=== PATIENT | female | born 1965 | race Caucasian/White ===

== ENCOUNTER 2018-10-29 09:25 | Emergency (ER) | payer OTHER ==
[2018-10-29] MEDS ORDERED: NS 1,000 ML IV ONE (10:04)
--- NOTE | 2018-10-29 11:14 | EDPHY ---
H & P Stated Complaint: Pt. disabled, WC bound, not transferring nml,fell sat &thurs, lle swelling Time Seen by Provider: 10/29/18 09:46 HPI/ROS: This patient is brought in by her parents with a history of 3 falls over the past 6 days. The 1st was witnessed by her mother-describes the patient falling backward during a transfer. Mother has the impression that the patient is more weak in the lower extremities than usual. Typically she can transfer with minimal assist but has required maximal assist over the past few days. She had 2 other minor falls as well. After the 1st fall patient's mother noted swelling the lower left extremity is worried that the patient may have a venous thrombosis, fracture or other injury. She reveals the patient is quite stoic and rarely complains of any pain. Parents brought her in by private vehicle. She normally ambulates in a wheelchair. Her recent history is notable for a UTI diagnosed on October 27 started on Keflex with pansensitive E coli growing out on the culture. She is currently taking Keflex 500 mg q.12 hours ROS: Constitutional: Low-grade fevers have resolved on Keflex HEENT: She denies any cold symptoms or other complaints Neuro: No headache. No change in the patient's baseline mental status per parents Musculoskeletal: No midline neck or back pain. Other than left lower extremity no extremity injuries. Patient is unable to specify if she has ankle foot or leg pain. Father does note the patient has a abrasion the dorsum of her left 2nd toe but the patient denies any pain to this area. Pulmonary: No shortness of breath. No coughing Cardiovascular: No chest pain or lightheadedness GI: No nausea vomiting. No belly pain. Normal bowel movements. : No dysuria. No hematuria. 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 However her mother and father provide good history.) - Personal History LMP (Females 10-55): Now - Medical/Surgical History Hx Asthma: No Hx Chronic Respiratory Disease: No Hx Diabetes: No Hx Cardiac Disease: No Hx Renal Disease: No Hx Cirrhosis: No Hx Alcoholism: No Hx HIV/AIDS: No Hx Splenectomy or Spleen Trauma: No Other PMH: Brain injury. Surg-none - Social History Smoking Status: Never smoked Alcohol Use: None Drug Use: None - Physical Exam Exam: General Appearance: Pleasant 53-year-old female Alert, no distress. Eyes: Pupils equal and round no pallor or injection. ENT, Mouth: Mucous membranes dry. Respiratory: There are no retractions, lungs are clear to auscultation. Cardiovascular: Regular rate and rhythm. No murmur gallop or rub Gastrointestinal: Abdomen is soft and nontender, no masses, bowel sounds normal. Back: No CVA tenderness Neurological: GCS 15 Skin: Warm and dry, no rashes. Patient has abrasion to the dorsum of her left 2nd toe-localized erythema is present Musculoskeletal: Neck is supple nontender. Extremities are symmetrical, full range of motion. Extremities atraumatic except for left lower extremity Left lower extremity: Patient has generalized edema to the foot ankle and leg with a negative Homans, no apparent focal foot or ankle tenderness. No calf tenderness is appreciated. Knee exam is normal. The patient has a superficial abrasion dorsum of the left 2nd toe with surrounding erythema warmth to touch consistent with localized cellulitis. No bony tenderness. Psychiatric: Mood and affect are normal DIFFERENTIAL DIAGNOSIS: After history and physical exam differential diagnosis was considered for ongoing UTI, contusion to the lower extremity, fibular fracture, ankle fracture, foot fracture, toe abrasion, toe cellulitis Constitutional: Initial Vital Signs Temperature (C) 37.0 C 10/29/18 09:37 Heart Rate 76 10/29/18 09:37 Respiratory Rate 16 10/29/18 09:37 Blood Pressure 144/92 H 10/29/18 09:37 O2 Sat (%) 93 10/29/18 09:37 O2 Delivery Mode Room Air Allergies/Adverse Reactions: adhesive Allergy (Verified 10/29/18 09:32) iodine [Iodine] Allergy (Verified 10/29/18 09:32) CONTRAST DYE Allergy (Uncoded 10/29/18 09:32) Home Medications: Medication Instructions Recorded Acetaminophen 10/29/18 Caltrate 600-D3-Min Chew Tab 10/29/18 Cephalexin 10/29/18 Cephalexin [Keflex Oral Liquid] 500 mg PO TID #150 ml 10/29/18 Colace 10/29/18 Ondansetron Odt [Zofran Odt] 4 - 8 mg PO Q4PRN PRN #4 tab 10/29/18 Medical Decision Making - Diagnostics Imaging Results: Imaging Impressions Extremity Venous Study 10/29/18 10:05 Impression: No deep venous thrombosis in the left lower extremity. Findings discussed with Eb Guevara M.D. at 10:53 hour, 10/29/2018. Tibia/Fibula X-Ray 10/29/18 10:06 Impression: 1. No acute osseous abnormality seen left tibia and fibula. 2. No acute osseous abnormality seen left foot. 3. Remodeling related to remote fractures of the left first toe proximal phalanx and fifth metatarsal. Findings discussed with Eb Guevara M.D. at 10:56 hour, 10/29/2018. Foot X-Ray 10/29/18 10:07 Impression: 1. No acute osseous abnormality seen left tibia and fibula. 2. No acute osseous abnormality seen left foot. 3. Remodeling related to remote fractures of the left first toe proximal phalanx and fifth metatarsal. Findings discussed with Eb Guevara M.D. at 10:56 hour, 10/29/2018. Tib-fib x-rays fracture by my interpretation Foot x-rays: No acute fracture by my interpretation Imaging: Discussed imaging studies w/ [employer] art teacher Radiologist (The Doppler ultrasound), I viewed and interpreted images myself (The plain x-rays) ED Course/Re-evaluation: Cleaned the patient's toe wound, applied bacitracin and bandage. We elevated her edematous leg. Patient is treated with Zofran for presumed nausea given diminished appetite. Discussion: Patient with ongoing leukocytosis but apparent clearance of UTI based on current UA. She has no fever. She does have findings on her toe exam consistent with a mild wound infection/localized cellulitis to the toe but no other infectious sources noted. She has no focal neuro deficits appreciated on exam. No other red flag findings. We ruled out DVT in fracture lower extremity. I counseled patient and parents regarding this. Plan to send her out on an additional 5 days of Keflex to cover toe cellulitis and Zofran for nausea that may be diminishing her appetite. - Data Points Laboratory Results: 10/29/18 11:06 POC Sodium 147 mEq/L H mEq/L (135-145) POC Potassium 3.3 mEq/L mEq/L (3.3-5.0) POC Chloride 100.0 mEq/L mEq/L (97-110) POC Total CO2 29 mEq/L mEq/L (22-31) POC BUN 14 mg/dL mg/dL (7-23) POC Creatinine 0.9 mg/dL mg/dL (0.6-1.0) POC Glucose 102 mg/dL H mg/dL (70-100) POC Calcium 9.8 mg/dL mg/dL (8.5-10.4) Patient[place] [id number] POC urine dip is normal Medications Given: Discontinued Medications Sodium Chloride (Ns) 1,000 mls @ 0 mls/hr IV EDNOW ONE; Wide Open PRN Reason: Protocol Stop: 10/29/18 10:05 Last Admin: 10/29/18 10:45 Dose: 1,000 mls Ceftriaxone Sodium/Dextrose (Rocephin 1 Gm (Premix)) 50 mls @ 100 mls/hr IV EDNOW ONE PRN Reason: Protocol Stop: 10/29/18 12:18 Last Admin: 10/29/18 12:01 Dose: Not Given Ondansetron HCl (Zofran Odt) 4 mg PO EDNOW ONE Stop: 10/29/18 12:07 Last Admin: 10/29/18 12:44 Dose: 4 mg Point of Care Test Results: CBC CBC Collection Date 10/29/18 CBC Collection Time 11:00 WBC 14.7 RBC 4.75 HGB 14.3 HCT 43.0 PLT 328 Neut # 12.9 Neut 88.0 LYMPH # 1.0 LYMPH 6.5 Other WBC # 0.8 Other WBC 5.5 MCV 90.5 Chemistry 10/29/18 11:06 POC Sodium 147 mEq/L H mEq/L (135-145) POC Potassium 3.3 mEq/L mEq/L (3.3-5.0) POC Chloride 100.0 mEq/L mEq/L (97-110) POC Total CO2 29 mEq/L mEq/L (22-31) POC BUN 14 mg/dL mg/dL (7-23) POC Creatinine 0.9 mg/dL mg/dL (0.6-1.0) POC Glucose 102 mg/dL H mg/dL (70-100) POC Calcium 9.8 mg/dL mg/dL (8.5-10.4) Urine Dip Collection Date 10/29/18 Collection Time 11:45 Specific [place] (1.002-1.030) 1.025 PH (5.0-7.5) 5.5 Leukocytes (Negative) Negative Nitrites (Negative) Negative Protein (Negative) 1+ Glucose (Negative) Negative Ketones (Negative) 1+ Urobilnogen (0.2-1.0 EU) 1.0 Bilirubin (Negative) Test Not Performed Blood (Negative) Trace Departure - Departure Disposition: Home, Routine, Self-Care Clinical Impression: Leg edema, left, Generalized weakness, Nausea Toe abrasion, infected Qualifiers: Encounter type: initial encounter Laterality: left Qualified Code(s): S90.415A - Abrasion, left lesser toe(s), initial encounter Condition: Good Instructions: Cephalexin (By mouth), Ondansetron (By mouth), Cellulitis (ED) Additional Instructions: Diagnoses: Generalized weakness 2. Nausea 3. Toe cellulitis/toe wound infection 4. Leg edema Plan: Clean the toe wound daily with warm soapy water,apply bacitracin and bandaid. Leave bandaid off 3-4hours a day. Elevate the leg past level of the heart whenever possible during the day while she is at rest Zofran for nausea as needed. Use the Zofran if she has no appetite as well Keflex antibiotic-take an additional 5 days worth 500 mg 3 times a day to cover the toe infection. Follow up primary care physician for any ongoing symptoms despite treatment plan Return for any significant worsening despite treatment plan Referrals: Shelby Argueta MD [Primary Care Provider] - As per Instructions Prescriptions: Cephalexin [Keflex Oral Liquid] 500 mg PO TID #150 ml Ondansetron Odt [Zofran Odt] 4 - 8 mg PO Q4PRN PRN #4 tab PRN Reason: Vomiting
[2018-10-29] MEDS ORDERED: ONDANSETRON DISINTEGRATING 4 MG TAB PO ONE (12:06)
[2018-10-29 12:44] VITALS: BP 126/76
== END 2018-10-29 12:42 | disposition home or self-care (01) ==
LOC: CED 09:25
DX: S90.415A Abrasion, left lesser toe(s), initial encounter (principal); R60.0 Localized edema; R53.1 Weakness; R11.0 Nausea; W19.XXXA Unspecified fall, initial encounter; Y92.9 Unspecified place or not applicable; Y93.9 Activity, unspecified; Y99.9 Unspecified external cause status
CPT/HCPCS: 73590-PO; 73630-PO; 80048-PO; 93971-PO

== ENCOUNTER → 2018-11-03 | Outpatient (CLI) | payer OTHER | LOC: CIMAGING 16:42 | PROVIDERS: ATTEND Family Medicine | DX: M24.852 Other specific joint derangements of left hip, not elsewhere classified (principal); M85.88 Other specified disorders of bone density and structure, other site | CPT/HCPCS: 73521-PO ==

== ENCOUNTER 2018-11-12 14:26 | Inpatient (IN) | payer OTHER ==
--- NOTE | 2018-11-12 16:03 | EDPHY ---
H & P Time Seen by Provider: 11/12/18 15:47 HPI/ROS: CHIEF COMPLAINT: Weakness, cellulitis HISTORY OF PRESENT ILLNESS: Patient is a 53-year-old female with a history of traumatic brain injury when she was 18 years old. She has been living in assisted living at [place] [facility]. The patient had a fall while getting out of the car few weeks ago. Since that time she has had increased gait issues. She seems unable to use her lower extremities. She normally could transfer herself using a walker and wheelchair. Now she is unable to use her lower extremities. She has also had leg swelling for the past 2 weeks. She has worked up as an outpatient by her primary care physician Dr. Davis. She had a negative ultrasound and x-ray. X-ray included her left lower extremity and hip. The patient was treated with Keflex for urinary tract infection and subsequently seen at an urgent care for left lower extremity redness. She was started on clindamycin in addition to the Keflex. The patient saw her primary care physician today, Dr. Davis. He noted that she had increased cellulitis. He was also concerned about head injury resulting from her fall. He noticed that her alk-phos was significantly elevated and was concerned about gallbladder disease. REVIEW OF SYSTEMS: 10 systems were reveiwed and are negative with the exception of the elements mentioned in the history of present illness. Past Medical/Surgical History: Includes traumatic brain injury, cellulitis Past surgical history: Negative Social history: Patient lives in assisted living Smoking Status: Never smoked Physical Exam: 36.7, 154/89, 110, 24, 97% on room air GENERAL: Well-appearing, in no acute distress, alert. HEENT: Eyes normal to inspection, normal pharynx, no signs of dehydration. No signs of head trauma. NECK: Normal, supple. RESPIRATORY: Clear to auscultation bilaterally, no rales, rhonchi or wheezing. CVS: Regular rate and rhythm, no rubs, murmurs, or gallops. ABDOMEN: Soft, nontender, nondistended, no organomegaly. BACK: Normal to inspection, no CVA tenderness. No spinal tenderness. SKIN: Normal color, no rash, warm, dry. No pallor. See lower extremity exam EXTREMITIES: Patient has swelling of her left lower extremity. There is erythema. The erythema extends beyond the demarcation. Mild bilateral pedal edema. Left slightly worse than the right. NEURO/PSYCH: Alert and oriented, baseline mood and affect, the patient has weakness in her bilateral lower extremities. Constitutional: Initial Vital Signs Temperature (C) 36.7 C 11/12/18 14:33 Heart Rate 110 H 11/12/18 14:33 Respiratory Rate 24 H 11/12/18 14:33 Blood Pressure 154/89 H 11/12/18 14:33 O2 Sat (%) 97 11/12/18 14:33 O2 Delivery Mode Room Air Allergies/Adverse Reactions: adhesive Allergy (Verified 11/12/18 14:32) iodine [Iodine] Allergy (Verified 11/12/18 14:32) Sulfa (Sulfonamide Antibiotics) Allergy (Verified 11/12/18 14:32) CONTRAST DYE Allergy (Uncoded 11/12/18 14:32) Home Medications: Medication Instructions Recorded Caltrate 600-D3-Min Chew Tab 10/29/18 Clindamycin 11/12/18 Medical Decision Making - Diagnostics Imaging Results: Imaging Impressions Head CT 11/12/18 15:59 Impression: Stable noncontrast CT of the brain. Marked enlargement of the ventricular system with underlying atrophy and encephalomalacia of the right frontal lobe. Results called to Dr. Nenita Fernandes at 4:45 PM at the time of the interpretation. ED Course/Re-evaluation: The in the emergency department I discussed possible etiologies with the patient and family. I answered all her questions. IV was placed. Laboratory studies were obtained. Patient was given normal saline 500 mL IV for hydration. Head CT: Patient has no acute disease noted. Please refer the dictated report by Dr. Robertson. The patient white count is mildly elevated at 10. Chemistry panel is unremarkable. Lactate acid is 1.1. Coags are normal. While in the emergency department she was noted to have a decubitus ulcer. This was cleaned and dressed. I discussed the results with the family. I answered all her questions. I also discussed case with Dr. Holly Barnett from the hospitalist service. I discussed the further workup which may be needed including ultrasound of the gallbladder as well as imaging of the spine for her new onset weakness. Differential Diagnosis: My differential includes but is not limited to cellulitis, bacteremia, sepsis, spinal cord injury, closed-head injury, subarachnoid hemorrhage, subdural hematoma epidural hematoma, hepatitis, cholecystitis, cholangitis - Data Points Laboratory Results: Laboratory Results 11/12/18 16:10 11/12/18 16:10 11/12/18 11/12/18 11/12/18 16:10 16:10 16:10 WBC RBC Hgb Hct MCV MCH MCHC RDW Plt Count MPV Neut % (Auto) Lymph % (Auto) [place] % (Auto) Eos % (Auto) Baso % (Auto) Nucleat RBC Rel Count Absolute Neuts (auto) Absolute Lymphs (auto) Absolute Monos (auto) Absolute Eos (auto) Absolute Basos (auto) Absolute Nucleated RBC Immature Gran % Immature Gran # PT 13.6 SEC SEC (12.0-15.0) INR 1.02 (0.83-1.16) APTT 27.5 SEC SEC (23.0-38.0) VBG Lactic Acid 1.1 mmol/L mmol/L (0.7-2.1) Sodium 138 mEq/L mEq/L (135-145) Potassium 4.5 mEq/L mEq/L (3.5-5.2) Chloride 105 mEq/L mEq/L (97-110) Carbon Dioxide 25 mEq/l mEq/l (22-31) Anion Gap 8 mEq/L mEq/L (6-14) BUN 9 mg/dL mg/dL (7-23) Creatinine 0.7 mg/dL mg/dL (0.6-1.0) Estimated GFR > 60 Glucose 96 mg/dL mg/dL (70-100) Calcium 9.5 mg/dL mg/dL (8.5-10.4) 11/12/18 16:10 WBC 10.31 10^3/uL H 10^3/uL (3.80-9.50) RBC 4.82 10^6/uL 10^6/uL (4.18-5.33) Hgb 14.0 g/dL g/dL (12.6-16.3) Hct 44.3 % % (38.0-47.0) MCV 91.9 fL fL (81.5-99.8) MCH 29.0 pg pg (27.9-34.1) MCHC 31.6 g/dL L g/dL (32.4-36.7) RDW 13.2 % % (11.5-15.2) Plt Count 592 10^3/uL H 10^3/uL (150-400) MPV 10.3 fL fL (8.7-11.7) Neut % (Auto) 74.8 % H % (39.3-74.2) Lymph % (Auto) 14.4 % L % (15.0-45.0) [place] % (Auto) 8.1 % % (4.5-13.0) Eos % (Auto) 1.7 % % (0.6-7.6) Baso % (Auto) 0.4 % % (0.3-1.7) Nucleat RBC Rel Count 0.0 % % (0.0-0.2) Absolute Neuts (auto) 7.72 10^3/uL H 10^3/uL (1.70-6.50) Absolute Lymphs (auto) 1.48 10^3/uL 10^3/uL (1.00-3.00) Absolute Monos (auto) 0.83 10^3/uL H 10^3/uL (0.30-0.80) Absolute Eos (auto) 0.18 10^3/uL 10^3/uL (0.03-0.40) Absolute Basos (auto) 0.04 10^3/uL 10^3/uL (0.02-0.10) Absolute Nucleated RBC 0.00 10^3/uL 10^3/uL (0-0.01) Immature Gran % 0.6 % % (0.0-1.1) Immature Gran # 0.06 10^3/uL 10^3/uL (0.00-0.10) PT INR APTT VBG Lactic Acid Sodium Potassium Chloride Carbon Dioxide Anion Gap BUN Creatinine Estimated GFR Glucose Calcium Departure - Departure Disposition: [facility] Inpatient Acute Clinical Impression: Weakness Lower extremity weakness Qualifiers: Laterality: bilateral Qualified Code(s): R29.898 - Other symptoms and signs involving the musculoskeletal system Cellulitis Qualifiers: Site of cellulitis: extremity Site of cellulitis of extremity: lower extremity Laterality: left Qualified Code(s): L03.116 - Cellulitis of left lower limb Decubitus ulcer Qualifiers: Pressure injury location: buttock Pressure injury stage: stage 2 Laterality: unspecified laterality Qualified Code(s): L89.302 - Pressure ulcer of unspecified buttock, stage 2 Condition: Good Referrals: Tree Davis, [Primary Care Provider] - As per Instructions
[2018-11-12 16:27] LABS: PLATELET COUNT 592 10^3/uL (150-400)
[2018-11-12 16:34] LABS: INR 1.02 (0.83-1.16); PROTIME(PATIENT) 13.6 SEC (12.0-15.0)
[2018-11-12] MEDS ORDERED: VANCOMYCIN HCL/NORMAL SALINE 250 ML IV ONE (16:56)
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
--- NOTE | 2018-11-12 19:37 | WOCRNPDOC ---
[facility] Advanced Assessment Note - Skin Integrity Problem, Advanced Assess Sacrum Pressure Injury Dressing Type: Allevyn Life Dressing Description: Clean/Dry, Intact Exudate Amount: Scant Exudate Characteristic(s): Serosanguinous Integumentary Issue Intervention: Dressing Changed, Dressing Initialed & Dated Bren Wound Tissue: Erythema, Non-blanching Wound Bed Color: Red, Yellow Wound Bed Constitution: Red/Manley - Non Granular Tissue (30%), Adhered Slough (70 %) Site Measurement - Head-to-Toe Length X Width X Depth (cm): 5.4x7.6x0.2 Pressure Injury Stage: Unstageable (main body of pressure injury), Deep Tissue Injury (DTI) (edges and proximal wound bed within and seperated by less than 0.5 cm from larger wound that is measured above) Pressure Injury Present on Admit: Yes Skin Integrity Problem Comment: Large pressure injury involving sacrum and coccyx that is of varying depths. This wound is surrounded by scar tissue from previous pressure injuries. The wound is very concerning and aggressive offloading is warrented to stop this wound from progressing. Without aggressive intervention the wound can quickly devolve into a stage 4 pressure injury that will be difficult to heal. The middle and left portions of the wound are covered by slough. There is a shallower area on the right that is pink/red non granular. However there are several areas of deep tissue injury on the periphery and on the proximal sacrum. The wound will enlarge as those areas open /evolve. Aggressive turning with no positioning on her back is indicated. Will trial an Envella mattress for this patient. If the Envella is not tolerable will revert to a P500, but an air fluidized surface would be best. Jeannine SUTTON in room for assessment. New mepilex border applied after cleaning and applying hydrogel to wound bed. Wound care will follow. Proximal Sacrum Pressure Injury Dressing Type: Open to Air Wound Bed Constitution: Red/Manley - Non Granular Tissue Site Measurement - Head-to-Toe Length X Width X Depth (cm): Inverted V shape total measurement of the is: 1.8x14.6x0.1. There are several areas open within the total measurement the largest area is on the right measuring 4x1.8x0.1 Pressure Injury Stage: Stage 2, Clinical Support Manager Related Pressure Injury Pressure Injury Present on Admit: Yes Skin Integrity Problem Comment: Suspected pressure injury from a bedpan. There are open and small scabbed areas throughout the inverted V shaped wound. The wound (tip of the V) originates around L1/L2 and extends distally onto each buttock.
--- NOTE | 2018-11-12 21:43 | HOSPPROG ---
Hospitalist Progress Note Assessment/Plan: 53 yo F with hx of TBI since age 18 residing in assisted living presenting with progressive weakness of her lower extremities to where she is no longer able to ambulate as well as decubitus ulcer present on arrival and LLE cellulitis # lower extremity weakness: hx is a bit confusing and has been obtained from patients family and patients PCP who wanted her worked up for this further-- sounds as if she was able to walk/transfer independently for short distances 2- 3 weeks ago but now is no longer ambulatory and seems to have right greater than left sided weakness with increased tone and no c/o pain. Exam difficult due to patients cognitive dysfunction and difficulty following commands. Will get MRI T/L spine if patient able to cooperate. Will ask for pt/ot to eval. Head CT without acute findings, consider brain MRI if w/u otherwise negative. # LLE cellulitis: relatively mild and without associated sepsis, was on clindamycin as an OP, given vanco x 1 in ER and will transition to ancef and monitor # cognitive decline: per patients pcp she has had a more progressive decline over the last several years in the setting of prior TBI, sounds as though she is at her more recent baseline currently # decubitus ulcer: present on arrival--please see wound care note for further details--two wounds, one unstageable the other stage 2, in the setting of new onset weakness as above, wound care to follow # elevated alk phos: noted by pcp, has been fractionated and noted to be both of bone and liver origin, other liver function tests are within normal limits. Not clear that this is a primary liver issue given elevated bone fraction as well. TSH wnl, calcium wnl. Consider referral to endocrinology if persists, could refractionate but overall seems to be trending down # dnr # IP status, will require > 48 hours stay for eval/mgmt of above Patient new to my care. Old records reviewed and summarized as above. Care plan reviewed with ER doctor and RAUL Loyd, please see her separate h&P for further details. Objective: Vital Signs Temp Pulse Resp BP Pulse Ox 36.9 C 98 16 128/94 H 98 11/12/18 18:20 11/12/18 18:20 11/12/18 18:20 11/12/18 18:20 11/12/18 18:20 11/11/18 11/12/18 11/13/18 05:59 05:59 05:59 Intake Total 400 Output Total 300 Balance 100 PT 13.6 SEC (12.0-15.0) 11/12/18 16:10 INR 1.02 (0.83-1.16) 11/12/18 16:10 ICD10 Worksheet Patient Problems: Problems Problem Status Onset Cellulitis Acute Decubitus ulcer Acute Lower extremity weakness Acute Weakness Acute
--- NOTE | 2018-11-13 09:35 | HOSPPROG ---
Hospitalist Progress Note Assessment/Plan: 53 yo F with hx of TBI since age 18 residing in assisted living presenting with progressive weakness of her lower extremities to where she is no longer able to ambulate as well as decubitus ulcer present on arrival and LLE cellulitis. First encounter, chart reviewed. # lower extremity weakness -was able to walk, transfer 2-3 weeks ago, now no longer ambulatory -CT of head shows no acute findings -MRI of spine pending # LLE cellulitis - relatively mild -clindamycin in the OP setting -on Ancef 11/12 (may need just another day) # cognitive decline - per patients pcp she has had a more progressive decline over the last several years in the setting of prior TBI - CT of head shows no acute findings -she is alert and appropriate for me # Stage 2 decubitus ulcer & one un-stageable (POA) -appreciate wound care # elevated alk phos -noted by PCP and is elevated here -consider further w/u in OP setting # Plan: MRI today Subjective: Columba has no complaints. Objective: Vital Signs Temp Pulse Resp BP Pulse Ox 36.7 C 103 H 20 142/95 H 91 L 11/13/18 08:00 11/13/18 08:00 11/13/18 08:00 11/13/18 08:00 11/13/18 08:00 11/12/18 11/13/18 11/14/18 05:59 05:59 05:59 Intake Total 400 Output Total 1200 Balance -800 PT 13.6 SEC (12.0-15.0) 11/12/18 16:10 INR 1.02 (0.83-1.16) 11/12/18 16:10 - Physical Exam Constitutional: not in pain, chronically ill appearing Eyes: PERRL Ears, Nose, Mouth, Throat: hearing normal Cardiovascular: regular rate and rhythym Respiratory: no respiratory distress Genitourinary: garvey in urethra Skin: warm (left inner thigh area marked where the cellulitis was noted on admission, minimally pink, non tender, slightly warm (RN who cared for her yesterday and caring for her today said this is much improved)), other (large pressure injury in the sacral coccyx area w yellow tissue sloughing, areas of deep tissue on peripheral area) Musculoskeletal: generalized weakness (left arm contracted, she is able to turn herself to her back, has trouble w extending her left leg) Psychiatric: interacting appropriately, not encephalopathic, other (answers my questions; is appropriate, slow to answer due to her cognitive issues) ICD10 Worksheet Patient Problems: Problems Problem Status Onset Cellulitis Acute Decubitus ulcer Acute Lower extremity weakness Acute Weakness Acute
--- NOTE | 2018-11-13 10:54 | PDMN ---
Medical Necessity Medical necessity: Pt meets inpt criteria per MD order and MCG M-70, Cellulitis. 53 y/o w/hx TBI admitted w/progressive weakness of LE's/unable to ambulate, LLE cellulitis which was being treated w/clindamycin in OP setting, and cognitive decline. IV ABX's, wound care, PT/OT/SP evals pending, anticipate> 2MN for ongoing eval/management of above.
--- NOTE | 2018-11-13 12:17 | ASMTCMCOM ---
CM Note CM Note Notes: 11/13/2018 Case Management Note Pt admitted for cellulitis and weakness. Pt has history of TBI in the late per parents. Met w/pt and her parents Charmaine [phone] and Migel. Pt sister Daniel Child can be reached at [phone]. Pt did not participate in conversation. Unable to complete CAGE questionnaire. Per pt parents, pt resides at [facility] in the Memory Care unit. Pt is currently a 2 - 3 person assist at [facility]. Faxed updates to [facility]. Family considering hiring unskilled care providers to office support associate at [facility]. Per parents, pt is currently open with [facility]. Faxed updates. Pt mother mentioned [facility] being a resource at [facility]. Mother mentioned several times depending on outcome of workup that a referral may be necessary. Mother wants to hold off on referral or order until after results of workup are complete. Awaiting outcome of therapy evals for discharge planning. Case Management d/c poc: to be determined. Case Management to follow. Date Signed: 11/13/2018 12:17 PM Electronically Signed By:Carolann Muhammad RN
[2018-11-14] MEDS ORDERED: BISACODYL 10 MG SUPP PR PRN (08:47)
[2018-11-14] MEDS ORDERED: MAGNESIUM HYDROXIDE 30 ML UDCUP PO PRN (08:47)
[2018-11-14] MEDS ORDERED: POLYETHYLENE GLYCOL 3350 17 GM PKT PO PRN (08:47)
[2018-11-14] MEDS ORDERED: LACTULOSE 20 GM/30 ML UDCUP PO PRN (08:47)
--- NOTE | 2018-11-14 09:26 | HOSPPROG ---
Hospitalist Progress Note Assessment/Plan: # acute on chronic LE weakness - mostly wheelchair bound at baseline, L arm contracted but much weaker now - doesn't seem explained by sacral fx - complicated overall picture - will ask Dr Devine to consult # S3 sacral fracture with canal impingement - nsg to consult # elevated alk phos - mixed picture on fractionated alk phos, GGT mild elevation - check RUQ US # TBI at 18 yo - resides at [facility]; sister and parents involved # LLE cellulitis - much better; stop ancef, start keflex # sacral pressure injuries - POA Subjective: still weak in bilat LE Objective: Vital Signs Temp Pulse Resp BP Pulse Ox 36.5 C 99 16 130/90 H 94 11/14/18 08:00 11/14/18 08:00 11/14/18 08:00 11/14/18 08:00 11/14/18 08:00 Laboratory Results 11/14/18 04:30 11/14/18 04:30 11/13/18 11/14/18 11/15/18 05:59 05:59 05:59 Output Total 900 1525 Balance -900 -1525 PT 13.6 SEC (12.0-15.0) 11/12/18 16:10 INR 1.02 (0.83-1.16) 11/12/18 16:10 chart reviewed discussed with Yvette Pappas and Cy Pappas MRIs reviewed - Physical Exam Constitutional: chronically ill appearing Cardiovascular: regular rate and rhythym, no murmur, rub, or gallop Respiratory: no respiratory distress, no rales or rhonchi, clear to auscultation Gastrointestinal: normoactive bowel sounds, soft, non-tender abdomen, no palpable masses Neurologic: other (markedly weak in bilat LE L<R; sensation intact; L arm contracted) ICD10 Worksheet Patient Problems: Problems Problem Status Onset Cellulitis Acute Decubitus ulcer Acute Lower extremity weakness Acute Weakness Acute
[2018-11-14] MEDS: SENNOSIDES/DOCUSATE SODIUM TAB PO SCH (09:39)
--- NOTE | 2018-11-14 10:09 | SOAPPROG ---
Downtime Inpatient MD Late Entry SOAP Note: Patient seen and examined. She has significant weakness of left leg and foot at 2/5 strength. Right leg is 3-4 througout from IP down to foot. Right UE is about 5-/5 and actually felt pretty strong but family notes the right arm is normally stronger Left UE is contracted and spastic and is not full rom but is about 3/5. Sacral FX is significant and I explained this to the family and creates stenosis for the S3 4 5 roots primarily but could affect S2 as well. S1 could even theoretically have some mild problems from the alar fxs. This certainly does not cause MYERS LE weakness from the hip flexors to the foot. I actually do not think the sacral fx is playing a role here at all, but she has a chronic history of partial continence and family has not noticed a difference at this point. Surgical treatment of such a fx is an enormous undertaking and would likely not be tolerated well by the patient. The thoracic MRI was not helpful at delineating a cause of the weakness as there is no compressive lesion. I would suggest MRI of the cspine and consider brain MRI. We welcome the input of the neurology service as well. We will follow for now. Full consult to be dictated. -jayla price md
--- NOTE | 2018-11-14 11:48 | ASMTCMCOM ---
CM Note CM Note Notes: Met with family, PT recommends SNF, CM gave family list of SNFs. They will tour and let CM know choice. Per RN, pt will be here for a few days. Pt is current with Fab[facility] at [facility]. DC Plan: SNF Date Signed: 11/14/2018 11:44 AM Electronically Signed By:Jalyn Feliciano RN
[2018-11-14] MEDS: CEPHALEXIN 500 MG CAP PO SCH ×2 (11:59→17:55)
--- NOTE | 2018-11-14 13:04 | NEUROPROG ---
Assessment: consult process initiated today. The patient has more weakness on top of her baseline severe left-sided weakness but more weakness in the right lower extremity sense of fall about 3 weeks ago with sacral fracture. 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 The actual muscle power by manual testing in the right lower extremity remains in the 4/5 range. I discussed the case with Dr. Viramontes and also with the patient's mother. We are going to her recommend MRI of the cervical spine for now and try a conservative approach but recognize it is possible she may ultimately need a sacral surgery done at the [facility]. He this certainly could carry some significant risks and her mother understands that and we will continue conversations about the best way to provide her comfort quality of life and safety. Objective: Vital Signs Temp Pulse Resp BP Pulse Ox 36.8 C 93 16 131/87 H 95 11/14/18 11:40 11/14/18 11:40 11/14/18 11:40 11/14/18 11:40 11/14/18 11:40 Laboratory Results 11/14/18 04:30 11/14/18 04:30 11/13/18 11/14/18 11/15/18 05:59 05:59 05:59 Output Total 900 1525 Balance -900 -1525 PT 13.6 SEC (12.0-15.0) 11/12/18 16:10 INR 1.02 (0.83-1.16) 11/12/18 16:10 Allergies/Adverse Reactions: Sulfa (Sulfonamide Antibiotics) Allergy (Intermediate, Verified 11/12/18 18:16) Rash vancomycin Allergy (Intermediate, Verified 11/13/18 10:51) Rash adhesive Allergy (Mild, Verified 11/12/18 18:16) Rash iodine [Iodine] Allergy (Verified 11/12/18 14:32) CONTRAST DYE Allergy (Uncoded 11/12/18 14:32)
[2018-11-14] MEDS ORDERED: LORazepam 2 MG/ML INJ IVP ONE (14:05)
[2018-11-14] MEDS ORDERED: LORazepam 1 MG TAB PO ONE (14:21)
[2018-11-14] MEDS ORDERED: ALTEPLASE 2 MG VIAL IVP PRN (14:37)
[2018-11-15] MEDS: SENNOSIDES/DOCUSATE SODIUM TAB PO SCH ×3 (00:30→23:24)
[2018-11-15] MEDS: CEPHALEXIN 500 MG CAP PO SCH ×5 (00:30→23:24)
--- NOTE | 2018-11-15 06:03 | GCON ---
NEUROSURGICAL CONSULTATION DATE OF CONSULTATION: 11/14/2018 REASON FOR CONSULTATION: Sacral fracture and weakness. HISTORY OF PRESENT ILLNESS: Ms. 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 She presented to the emergency department with bilateral lower extremity weakness and left lower extremity cellulitis and was admitted to the Medicine service 2 days ago. She requires constan t care and is wheelchair bound, but prior to the development of this problem, she was able to make he r transfers easily from wheelchair to another chair. She has also had a remarkably poor appetite. S he apparently on October 22, the patient had fallen while trying to take a few walking steps outside of her wheelchair after getting out of the car, and then she fell a couple more times the subsequent day, and since this fall, she has had progressive decline. The family notes that she has a chronic history of weakness of the left side, both the left leg and the left arm, with chronic contractures o f the left arm, but they felt that both the left side and the right side were getting much weaker, bu t the most significant change is on the right side. Predominantly the right leg is getting weaker, b ut they also note that she is not as good with the right arm since this injury. Neurosurgery was con sulted because of the significant sacral S2 fracture as well as sacral alar fractures, and we came to see the patient. PAST MEDICAL HISTORY: Significant for TBI at age 18, osteoporosis, gait abnormality, decubitus ulcer s. SOCIAL HISTORY: She lives in assisted living at the [facility] in [facility]. She does not use drugs, alcohol, or tobacco. ALLERGIES: Sulfa. She has an adhesive allergy. She has an allergy to iodine and contrast dye. HOME MEDICATIONS: Includes clindamycin and calcium carbonate. VITAL SIGNS: Today were blood pressure 130/90, map 103, respiratory rate 16, O2 sats 94, temperature 36.5. Her eyes were open. She followed commands bilaterally. She was conversant, but she does have a trau matic brain injury and can only answer simple questions. She too notes that she has been weaker. e denies sensory loss in her lower extremities or upper extremities. PHYSICAL EXAMINATION: The right lower extremity was 4/5 throughout. She was able to flex the foot, elevate the foot, use the quad and the iliopsoas and hamstring muscle with decent strength, and they were all about equal from iliopsoas to the ankle. She was even able to wiggle the toes. The left lo wer extremity I characterized the strength there as 2/5. She is able to move the foot slightly and m ove the leg, as well as the iliopsoas better than a muscle twitch, but not full range of motion and n ot antigravity on the left-hand side. 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 I would not have necessarily noted that this was weakne ss except the family notes that the right upper extremity is weaker than normal. The left side is ch ronically contracted, and she does have some motion of the left upper extremity, but is not good with any of her hand intrinsics, but she has about 2/5 strength in the left biceps. She is not able to m ove any of it full antigravity. She had no facial asymmetry. Her extraocular movements were intact. DIAGNOSTIC REVIEW: MRI of the thoracic spine demonstrated no compressive lesion. MRI of the lumbar spine demonstrated no significant compressive lesion, but she does, in fact, have quite a significant sacral fracture with anterior listhesis of S2 on S3 with a transverse fracture through bi lateral sacral alar fractures. This does create stenosis for the lower sacral nerve roots; S2, S3, S 4, and predominantly would affect the S3, 4 and 5 roots. ASSESSMENT: Ms. Contreras is a 53-year-old with lower extremity weakness and a sacral fracture that reall y does not appear to be related to the lower extremity weakness. It certainly does not explain the w eakness throughout the right leg. It is possible that S1 could be affected by the fracture, but the nerves most likely affected are those controlling her bowel and bladder, and her family has not noted her chronic incontinence has changed since the time of this fall a few weeks ago. I did discuss the sacral fracture with them. There is no easy surgical fix for it, and if they wanted to pursue surgi cristofer management of this, we would likely request that they do this down at the [place] with someone specialized in the management of complex sacral fractures. It does not, however, in my opinion, gómez ear to be operative from a neurologic standpoint because I cannot truly relate any of her dysfunction to the fracture itself. An argument could be made for trying to stabilize the fracture from a pain standpoint, but again, given the surgical morbidity, it is unclear whether that is better than just s imply allowing this to heal on its own. With regard to her weakness, it might be reasonable to consi jennie an MRI of the cervical spine, although the weakness that she has in the right lower extremity is more consistent with a lower motor neuron or even a motor unit type weakness because it was not a spa stic weakness or a flaccid paralysis, or weakness of the leg, and the patient will be seen later by [facility]rology. We will await their opinion as well, but an MRI of the cervical spine might help us rule o ut in this trauma patient the possibility of a cervical fracture contributing to the problem, althoug h it is unlikely. /[id number]/MODL
--- NOTE | 2018-11-15 09:49 | NEUROPROG ---
Assessment: consult process initiated today. The patient has more weakness on top of her baseline severe left-sided weakness but more weakness in the right lower extremity sense of fall about 3 weeks ago with sacral fracture. 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 The actual muscle power by manual testing in the right lower extremity remains in the 4/5 range. I discussed the case with Dr. Viramontes and also with the patient's mother. We are going to her recommend MRI of the cervical spine for now and try a conservative approach but recognize it is possible she may ultimately need a sacral surgery done at the [facility]. He this certainly could carry some significant risks and her mother understands that and we will continue conversations about the best way to provide her comfort quality of life and safety. 11/15/18: Total unit time of 25 min. The patient has weakness on the left side which is not new but worse than her baseline and the right lower extremity strength is also worsen her baseline where she was working at a higher level of function and this is understandably very frustrating for the family. We reviewed the testing which has been done so far and do not really see something they can't definitively explain the decline other than the suspected multifactorial nature of her relative immobility, the fracture itself, having had cellulitis, and perhaps non compressive radicular changes leading to the weakness from simply the trauma itself. They do not want to pursue surgery for the sacral fracture. The approach will be as aggressive a physical therapy as possible. Subjective: I met again this morning with the patient and was able to directly discussed her case with her sister, her father and her mother who are all in the room. Patient had clearly declined quite rapidly after the fall 3 weeks ago and that is the major source of concern as to whether there is something to explain this. She was previously able to do transferring with mild assistance. Although she had been having a little bit of decline in the last several years, this was a rather dramatic change. We talked about that in detail. The patient is not expressing any specific new complaints. Objective: Vital Signs Temp Pulse Resp BP Pulse Ox 36.4 C 91 16 135/93 H 97 11/15/18 08:00 11/15/18 08:00 11/15/18 08:00 11/15/18 08:00 11/15/18 08:00 Laboratory Results 11/15/18 05:45 11/15/18 05:45 11/14/18 11/15/18 11/16/18 05:59 05:59 05:59 Intake Total 1000 Output Total 1525 1225 Balance -1525 -225 PT 13.6 SEC (12.0-15.0) 11/12/18 16:10 INR 1.02 (0.83-1.16) 11/12/18 16:10 On examination she has some proximal flexion in the left lower extremity just in the 3/5 range but really no movement of her foot. Family really does not know how much of movement there was before but feels that probably was at least a little more than were seeing now. However, this is a longstanding left-sided weakness. In the right lower extremity she is demonstrating 4/5 strength in dorsiflexion and extension of the leg and hip flexion. She seems to be a little weaker proximally than distally. The MRI of the cervical spine yesterday did not reveal any significant structural lesions. There was not compression of the spinal cord. Allergies/Adverse Reactions: Sulfa (Sulfonamide Antibiotics) Allergy (Intermediate, Verified 11/12/18 18:16) Rash vancomycin Allergy (Intermediate, Verified 11/13/18 10:51) Rash adhesive Allergy (Mild, Verified 11/12/18 18:16) Rash iodine [Iodine] Allergy (Verified 11/12/18 14:32) CONTRAST DYE Allergy (Uncoded 11/12/18 14:32)
--- NOTE | 2018-11-15 11:03 | SOAPPROG ---
SOAP Progress Note Assessment/Plan: Assessment: MRI of the Cervical spine demonstrated no significant compressive pathology to explain the weakness. MRI of the Thoracic spine demonstrated no signficant compressive pathology to explain the weakness MRI of the Lumbar spine demonatrated no significant compressive pathology within the lumbar spine to explain the weakness. It did demonstrate a significant sacral fx that creates some stenosis for the sacral roots S3 4 5 principally. Family does not wish to have reparative sacral surgery. We will sign off at this point. She can fu with us in the office in 3-4 weeks as needed to check her progress. Rene Viramontes MD. Plan: 11/15/18 11:00 Subjective: Patient was seen early this am just before 7am. no overall change and no new complaints. Family not yet at bedside. Objective: Vital Signs Temp Pulse Resp BP Pulse Ox 36.4 C 91 16 135/93 H 97 11/15/18 08:00 11/15/18 08:00 11/15/18 08:00 11/15/18 08:00 11/15/18 08:00 Laboratory Results 11/15/18 05:45 11/15/18 05:45 11/14/18 11/15/18 11/16/18 05:59 05:59 05:59 Intake Total 1000 Output Total 1525 1225 Balance -1525 -225 PT 13.6 SEC (12.0-15.0) 11/12/18 16:10 INR 1.02 (0.83-1.16) 11/12/18 16:10 No change in exam today. ICD10 Worksheet Patient Problems: Problems Problem Status Onset Cellulitis Acute Decubitus ulcer Acute Lower extremity weakness Acute Weakness Acute
--- NOTE | 2018-11-15 11:48 | HOSPPROG ---
Hospitalist Progress Note Assessment/Plan: # acute on chronic LE weakness - mostly wheelchair bound at baseline, L arm contracted but much weaker now - multifactorial, cellulitis, sacral fracture, overall debility # S3 sacral fracture with canal impingement - family wishes for non-op management which is reasonable # elevated alk phos - RUQ US nl - i discussed further w/u and the basic differential (bone possibly cancer, liver); family would not like further w/u at this point which is also reasonable # TBI at 18 yo - resides at [place]; sister and parents involved # LLE cellulitis - improved, cont keflex # sacral pressure injuries - POA # dispo - inpatient rehab consult placed Subjective: still weak in bilat LE Objective: Vital Signs Temp Pulse Resp BP Pulse Ox 36.4 C 91 16 135/93 H 97 11/15/18 08:00 11/15/18 08:00 11/15/18 08:00 11/15/18 08:00 11/15/18 08:00 Laboratory Results 11/15/18 05:45 11/15/18 05:45 11/14/18 11/15/18 11/16/18 05:59 05:59 05:59 Intake Total 1000 Output Total 1525 1225 Balance -1525 -225 PT 13.6 SEC (12.0-15.0) 11/12/18 16:10 INR 1.02 (0.83-1.16) 11/12/18 16:[address] Devine MRI c-spine reviewed - Time Spent With Patient Time Spent with Patient: greater than 35 minutes Time Spent with Patient: Greater than 35 minutes spent on this patients care, greater than 50% of time spent counseling, educating, and coordinating care regarding the above mentioned plan. - Physical Exam Constitutional: chronically ill appearing Cardiovascular: regular rate and rhythym, no murmur, rub, or gallop Respiratory: no respiratory distress, no rales or rhonchi, clear to auscultation Gastrointestinal: normoactive bowel sounds, soft, non-tender abdomen, no palpable masses ICD10 Worksheet Patient Problems: Problems Problem Status Onset Lower extremity weakness Acute Cellulitis Acute Decubitus ulcer Acute Weakness Acute
--- NOTE | 2018-11-15 13:52 | ASMTCMCOM ---
CM Note CM Note Notes: Pt admitted for cellulitis and weakness and imaging revealed sacral fracture. Pt also has sacral pressure injury. Pt has history of TBI in the late per parents and lives at [facility]. Hospitalist placed order today for inpatient rehab eval which will not happen until likely Wed. If pt does not qualify family would like her to go to a short term rehab and will notify CM when they decide which one. Info from past CM eval: Met w/pt and her parents Charmaine [phone] and Migel. Pt sister Daniel Child can be reached at [phone]. Per pt parents, pt resides at [facility] in the Memory Care unit. 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 Faxed updates to [facility]. Family considering hiring unskilled care providers to operations support professionals at [facility]. Per parents, pt is currently open with [facility]. Faxed updates. Pt mother mentioned [facility] being a resource at [facility]. Mother mentioned several times depending on outcome of workup that a referral may be necessary. Mother wants to hold off on referral or order until after results of workup are complete. D/C Plan: Inpatient rehab v SNF Date Signed: 11/15/2018 01:52 PM Electronically Signed By:Jeannine Magallanes
[2018-11-16] MEDS: CEPHALEXIN 500 MG CAP PO SCH ×3 (05:51→17:43)
[2018-11-16] MEDS ORDERED: methylPREDNISolone SOD SUCC 125 MG/2 ML VIAL IVP ONE (08:35)
--- NOTE | 2018-11-16 08:44 | HOSPPROG ---
Hospitalist Progress Note Assessment/Plan: # acute on chronic LE weakness - mostly wheelchair bound at baseline, L arm contracted but much weaker now - multifactorial, cellulitis, sacral fracture, overall debility # tachycardia - concerning for PE given her immobility, no DVT ppx with the question of surgery, but have decided on non-op treatment - check CTA, US legs, ECG - will w/u further if above negative # iodine allergy - discussed with sister - occurred 30 years ago, sister believes it was a rash; there was no anaphylaxis - pre-treat prior to CT # S3 sacral fracture with canal impingement - family wishes for non-op management which is reasonable # elevated alk phos - RUQ US nl - i discussed further w/u and the basic differential (bone, possibly cancer, liver); family would not like further w/u at this point which is also reasonable # TBI at 18 yo - resides at [place]; sister and parents involved # LLE cellulitis - much improved, cont keflex D#03/31 # sacral pressure injuries - POA # dispo - inpatient rehab consult placed Subjective: denies CP or SOB Objective: Vital Signs Temp Pulse Resp BP Pulse Ox 36.6 C 106 H 16 115/83 H 96 11/16/18 08:19 11/16/18 08:19 11/16/18 08:19 11/16/18 08:19 11/16/18 08:19 Laboratory Results 11/15/18 05:45 11/15/18 05:45 11/15/18 11/16/18 11/17/18 05:59 05:59 05:59 Intake Total 1000 100 Output Total 1225 1050 Balance -225 -950 PT 13.6 SEC (12.0-15.0) 11/12/18 16:10 INR 1.02 (0.83-1.16) 11/12/18 16:10 high risk with tachycardia - Physical Exam Constitutional: no apparent distress, appears nourished Cardiovascular: no murmur, rub, or gallop, tachycardia, No bradycardia, No edema Respiratory: no respiratory distress, no rales or rhonchi, clear to auscultation Gastrointestinal: normoactive bowel sounds, soft, non-tender abdomen, no palpable masses Musculoskeletal: other (no LE edema; cellulitis much improved, minimal erythema , no warmth or pain) ICD10 Worksheet Patient Problems: Problems Problem Status Onset Lower extremity weakness Acute Cellulitis Acute Decubitus ulcer Acute Weakness Acute
[2018-11-16] MEDS: SENNOSIDES/DOCUSATE SODIUM TAB PO SCH ×2 (09:13→22:05)
[2018-11-16] MEDS ORDERED: IOPAMIDOL (ISOVUE 370) 100 ML BTL IV ONE (10:02)
[2018-11-16] MEDS ORDERED: LR 1,000 ML IV SCH (12:30)
[2018-11-16] MEDS: ENOXAPARIN 40 MG/0.4 ML SYR SC SCH (12:42)
[2018-11-17] MEDS: CEPHALEXIN 500 MG CAP PO SCH ×4 (01:18→18:30)
[2018-11-17 06:49] LABS: PLATELET COUNT 341 10^3/uL (150-400)
[2018-11-17] MEDS: ENOXAPARIN 40 MG/0.4 ML SYR SC SCH (09:19)
--- NOTE | 2018-11-17 10:21 | WOCRNPDOC ---
WOCRN Advanced Assessment Note - Skin Integrity Problem, Advanced Assess Sacrum Pressure Injury Dressing Type: Mepilex Border Dressing Description: Intact, Soiled (feces) Exudate Amount: Scant Exudate Characteristic(s): Serosanguinous Integumentary Issue Intervention: Dressing Removed Bren Wound Tissue: Blanching, Erythema Wound Bed Constitution: Red/[place] - Non Granular Tissue (60%), Adhered Slough (40 %) Site Measurement - Head-to-Toe Length X Width X Depth (cm): 5x5x0.1 Pressure Injury Stage: Unstageable Pressure Injury Present on Admit: Yes Skin Integrity Problem Comment: Wound has evolved into an unstagable pressure injury. Peripheral tissues are partial thickness, however the center is filled with slough. Due to patient's incontinence it is difficult to place a dressing and have it even last for 24 hours. Due to this wound care orders will remain the same, (wound gel + foam border) though debridement (bedside) may be indicated in the future if incontinence improves. Query bowel program for patient. Wound care will follow. Proximal Sacrum Pressure Injury Dressing Type: Mepilex Border Integumentary Issue Intervention: Dressing Removed Wound Bed Constitution: Healed
[2018-11-17] MEDS: SENNOSIDES/DOCUSATE SODIUM TAB PO SCH ×2 (10:27→21:06)
--- NOTE | 2018-11-17 10:35 | ECHO ---
[email or web address] [address] [address] Main: [phone] Fax: Transthoracic Echocardiogram Name: XENA HANSON MR#: [id number] Study Date: 11/17/2018 Study Time: 07:29 AM Date of : 1965 Age: 53 year(s) Height: 165.1 cm (65 in.) Weight: 65.32 kg (144 lb.) BSA: 1.72 m2 Gender: Female Examination: Echo Indication: tachy Image Quality: Adequate Contrast: Requested by: Scott Orellana BP: / Heart Rate: Rhythm: Indication: tachy Procedure Staff Acid Tester: Lulu Gonzales [facility] Reading Physician: Ritchie Villalta MD Requesting Provider: Conclusions: Normal size left ventricle. Normal global systolic LV function. EF is 68 %. No regional wall motion abnormality. Normal diastolic LV function. Normal RV function. The left atrium is normal in size. The right atrium is normal in size. No pericardial effusion. Measurements: Chambers Valvular Assessment AV/MV Valvular Assessment TV/PV Normal Normal Normal Name Value Range Name Value Range Name Value Range Ao Liss (2D): 2.7 cm (1.4 cm-2.6 AV Vmax: 1.29 m/s (1 m/s-1.7 cm) m/s) IVSd (2D): 0.8 cm (0.6 cm-1.1 AV maxP mmHg ( - ) cm) AV meanP mmHg ( - ) LVDd (2D): 3.9 cm (3.9 cm-5.3 DINA (VTI): 2.2 cm ( - ) cm) MV E Vmax: 0.66 m/s ( - ) LVDs (2D): 2.4 cm (2.1 cm-4 MV A Vmax: 0.71 m/s ( - ) cm) MV E/A: 0.93 ( - ) LVPWd (2D): 0.9 cm ( - ) MV PHT: 0.057 s ( - ) LVOTd 1.7 cm 1.7 cm mm MVA (PHT): 3.9 s ( - ) LVEF (2D): 68 (>=54 %) RVDd(2D): 2.0 cm (1.9 cm-3.8 cmmm) Continued Measurements: Chambers Valvular Assessment AV/MV Patient: XENA HANSON Study Date: 11/17/2018 Page 1 of 2 07:29 AM Name Value Name Value LADs: 2.4 cm MV DecTime: 204 m/s MV E/E' Lateral: 5.50 Findings: Left Ventricle: Normal size left ventricle. No LV hypertrophy. Normal global systolic LV function. EF is 68 %. No regional wall motion abnormality. Normal diastolic LV function. Right Ventricle: Normal size right ventricle. Normal RV function. Left Atrium: The left atrium is normal in size. Right Atrium: The right atrium is normal in size. Mitral Valve: The mitral valve is normal in appearance and function. Trivial mitral valve regurgitation. No mitral stenosis is present. Aortic Valve: The aortic valve is normal in appearance. There is no significant aortic valve regurgitation. No aortic valve stenosis is present. Tricuspid Valve: The tricuspid valve is normal in appearance and function. Trivial tricuspid valve regurgitation. Pulmonic Valve: Pulmonary valve not well visualized. Aorta: The aorta is normal. Normal size aortic root measuring 2.7 cm. IVC: Unable to obtain subcostal imaging due to patient positioning. Pericardium: No pericardial effusion. Exam Comments: Patient unable to position due to sacral fracture and overall weakness Technically difficult, obtained what I could. (No Signature Object) Patient: XENA HANSON Study Date: 11/17/2018 Page 2 of 2 07:29 AM [id number]
--- NOTE | 2018-11-17 14:57 | HOSPPROG ---
Hospitalist Progress Note Assessment/Plan: 53 yo F w h/o TBI a/w weakness acute on chronic LE weakness - mostly wheelchair bound at baseline, L arm contracted but much weaker now - multifactorial, cellulitis, sacral fracture, overall debility tachycardia - concerning for PE given her immobility, no DVT ppx with the question of surgery, but have decided on non-op treatment tsh nl euvolemic cta w no PE, u/s no dvt not anemic echo normal follow iodine allergy - discussed with sister - occurred 30 years ago, sister believes it was a rash; there was no anaphylaxis - pre-treat prior to CT tolerated ct w contrast S3 sacral fracture with canal impingement - family wishes for non-op management which is reasonable elevated alk phos - RUQ US nl - i discussed further w/u and the basic differential (bone, possibly cancer, liver); family would not like further w/u at this point which is also reasonable thyroid nodule: no stridor not d/w family as not available inlight of previous decisions, suspect they will not pursue TBI at 18 yo - resides at [place]; sister and parents involved LLE cellulitis - much improved, cont keflex D#6/7 sacral pressure injuries - POA dispo - inpatient rehab consult placed Subjective: no complaints. ct images reviewed/interp by me Objective: Vital Signs Temp Pulse Resp BP Pulse Ox 36.6 C 118 H 16 112/85 H 95 11/17/18 12:00 11/17/18 12:00 11/17/18 12:00 11/17/18 12:00 11/17/18 12:00 Laboratory Results 11/17/18 06:10 11/17/18 06:10 11/16/18 11/17/18 11/18/18 05:59 05:59 05:59 Intake Total 100 500 Output Total 1050 650 Balance -950 -150 PT 13.6 SEC (12.0-15.0) 11/12/18 16:10 INR 1.02 (0.83-1.16) 11/12/18 16:10 - Physical Exam Constitutional: no apparent distress, appears nourished Eyes: PERRL, anicteric sclera Ears, Nose, Mouth, Throat: moist mucous membranes, hearing normal Cardiovascular: regular rate and rhythym, no murmur, rub, or gallop, tachycardia Respiratory: no respiratory distress, no rales or rhonchi Gastrointestinal: normoactive bowel sounds, soft, non-tender abdomen Genitourinary: no bladder fullness, No garvey in urethra Skin: warm, normal color Musculoskeletal: full muscle strength Neurologic: AAOx3 ICD10 Worksheet Patient Problems: Problems Problem Status Onset Cellulitis Acute Decubitus ulcer Acute Lower extremity weakness Acute Weakness Acute
[2018-11-18] MEDS: CEPHALEXIN 500 MG CAP PO SCH ×5 (00:32→23:34)
[2018-11-18] MEDS: SENNOSIDES/DOCUSATE SODIUM TAB PO SCH ×2 (08:25→20:35)
[2018-11-18] MEDS: ENOXAPARIN 40 MG/0.4 ML SYR SC SCH (08:47)
--- NOTE | 2018-11-18 11:09 | HOSPPROG ---
Hospitalist Progress Note Assessment/Plan: 53 yo F w h/o TBI a/w weakness acute on chronic LE weakness - mostly wheelchair bound at baseline, L arm contracted but much weaker now - multifactorial, cellulitis, sacral fracture, overall debility tachycardia - concerning for PE given her immobility, no DVT ppx with the question of surgery, but have decided on non-op treatment tsh nl euvolemic cta w no PE, u/s no dvt not anemic echo normal follow iodine allergy - discussed with sister - occurred 30 years ago, sister believes it was a rash; there was no anaphylaxis - pre-treat prior to CT tolerated ct w contrast S3 sacral fracture with canal impingement - family wishes for non-op management which is reasonable elevated alk phos - RUQ US nl - i discussed further w/u and the basic differential (bone, possibly cancer, liver); family would not like further w/u at this point which is also reasonable thyroid nodule: no stridor discussed w family, risks and befits of further workup differential is thyroid nodule vs CA they wish for diagnosis. they dont wish for surgical management possibility exists that if CA could be amenable to iodine ablation thyroid biopsy ordered for 11/19 euthyroid by tsh check t3, t4 TBI at 18 yo - resides at [place]; sister and parents involved LLE cellulitis - much improved, cont keflex D#7/7 garvey: dc sacral pressure injuries - POA wound care followwin dispo - inpatient rehab has rejected patient. family upset about this. I stated we would try and appeal this 11/19 but did not make guarantees. was 1 person assist three weeks ago Subjective: 30 minutes spent at bedside w parents discussing plan of care. 35 minutes total care Objective: Vital Signs Temp Pulse Resp BP Pulse Ox 36.8 C 102 H 16 123/96 H 96 11/18/18 08:00 11/18/18 08:00 11/18/18 08:00 11/18/18 08:00 11/18/18 08:00 Laboratory Results 11/17/18 06:10 11/17/18 06:10 11/17/18 11/18/18 11/19/18 05:59 05:59 05:59 Intake Total 500 750 Output Total 650 1600 Balance -150 -850 PT 13.6 SEC (12.0-15.0) 11/12/18 16:10 INR 1.02 (0.83-1.16) 11/12/18 16:10 - Physical Exam Constitutional: no apparent distress, appears nourished Eyes: PERRL, anicteric sclera Ears, Nose, Mouth, Throat: moist mucous membranes, hearing normal Cardiovascular: regular rate and rhythym, no murmur, rub, or gallop Respiratory: no respiratory distress, no rales or rhonchi Gastrointestinal: normoactive bowel sounds, soft, non-tender abdomen Genitourinary: garvey in urethra Skin: warm, normal color Musculoskeletal: No full muscle strength Neurologic: No AAOx3 Psychiatric: interacting appropriately Lymph, Heme, Immunologic: no cervical LAD ICD10 Worksheet Patient Problems: Problems Problem Status Onset Cellulitis Acute Decubitus ulcer Acute Lower extremity weakness Acute Weakness Acute
--- NOTE | 2018-11-18 11:19 | ASMTCMCOM ---
CM Note CM Note Notes: Spoke w/ , pt was denied by [facility]pt Rehab. consulted with family, would like CM to call Georgina at rehab to discuss decision. JEFF w/f. Pt lives at [facility] and is current with [facility] Plan: SNF vs Inpt Rehab Date Signed: 11/18/2018 11:19 AM Electronically Signed By:Jalyn Feliciano RN
[2018-11-19] MEDS: CEPHALEXIN 500 MG CAP PO SCH (06:22)
[2018-11-19] MEDS: ENOXAPARIN 40 MG/0.4 ML SYR SC SCH (09:55)
[2018-11-19] MEDS: SENNOSIDES/DOCUSATE SODIUM TAB PO SCH ×2 (09:55→23:05)
[2018-11-19] MEDS ORDERED: LIDOCAINE 1% 300 MG/30 ML SDV ONE (11:33)
--- NOTE | 2018-11-19 13:49 | HOSPPROG ---
Hospitalist Progress Note Assessment/Plan: 53 yo F w h/o TBI with weakness. First encounter, chart reviewed. D/W Radiology. #acute on chronic LE weakness - mostly wheelchair bound at baseline, -L arm contracted but much weaker now - multifactorial, cellulitis, sacral fracture, overall debility #tachycardia -tsh nl -euvolemic -cta w no PE, u/s no dvt -not anemic -echo normal -follow -consider beta guera #iodine allergy - occurred 30 years ago, sister believes it was a rash; there was no anaphylaxis - pre-treated prior to CT -tolerated ct w contrast #S3 sacral fracture with canal impingement - family wishes for non-op management which is reasonable #elevated alk phos - RUQ US nl - further w/u and the basic differential (bone, possibly cancer, liver); -family would not like further w/u at this point which is also reasonable #thyroid nodule: - no stridor -discussed w family, risks and befits of further workup -differential is thyroid nodule vs CA -they wish for diagnosis. they dont wish for surgical management -possibility exists that if CA could be amenable to iodine ablation -thyroid biopsy today -euthyroid by tsh -check t3, t4 #TBI at 18 yo - resides at [place]; -sister and parents involved #LLE cellulitis - much improved, cont keflex D#05/31 -DC #guru: -dc #sacral pressure injuries - POA -wound care following #dispo - inpatient rehab has rejected patient -will need SNF Subjective: Up in chair. Feels well. No pain. Objective: Vital Signs Temp Pulse Resp BP Pulse Ox 37.2 C 125 H 16 124/93 H 95 11/19/18 12:13 11/19/18 12:13 11/19/18 12:13 11/19/18 12:13 11/19/18 12:13 Laboratory Results 11/17/18 06:10 11/17/18 06:10 11/18/18 11/19/18 11/20/18 05:59 05:59 05:59 Intake Total 750 250 Output Total 1600 1150 Balance -850 -900 PT 13.6 SEC (12.0-15.0) 11/12/18 16:10 INR 1.02 (0.83-1.16) 12/19/18 16:10 - Physical Exam Constitutional: appears nourished, not in pain, chronically ill appearing Eyes: PERRL, anicteric sclera, EOMI Ears, Nose, Mouth, Throat: moist mucous membranes, hearing normal, ears appear normal Cardiovascular: tachycardia, No JVD, No edema Respiratory: no respiratory distress, no rales or rhonchi, reduced air movement Gastrointestinal: normoactive bowel sounds, No tenderness, No ascites Skin: warm, no rashes or abrasions, pressure ulcer Musculoskeletal: no joint effusions, abnormal gait, generalized weakness Neurologic: weakness Psychiatric: not anxious, poor insight, poor judgement, poor memory ICD10 Worksheet Patient Problems: Problems Problem Status Onset Lower extremity weakness Acute Cellulitis Acute Decubitus ulcer Acute Weakness Acute
--- NOTE | 2018-11-19 13:58 | ASMTCMCOM ---
CM Note CM Note Notes: Fe Julian at [facility] inpatient rehab re-reviwed chart and still reports pt does not qualify for their program. Spoke with pt and her parents Rc and Charmaine about this, they are understanding. SNF choice is [facility], referral sent in [employer] and [facility] can accept. CM to follow. D/c plan of care: [facility] SN[facility] when medically stable. Date Signed: 11/19/2018 01:58 PM Electronically Signed By:KOURTNEY Conte
[2018-11-20] MEDS: ENOXAPARIN 40 MG/0.4 ML SYR SC SCH (08:36)
[2018-11-20] MEDS: SENNOSIDES/DOCUSATE SODIUM TAB PO SCH (08:37)
--- NOTE | 2018-11-20 09:26 | CPEKG ---
Test Reason : OPEN Blood Pressure : / mmHG Vent. Rate : 112 BPM Atrial Rate : 112 BPM P-R Int : 132 ms QRS Dur : 089 ms QT Int : 335 ms P-R-T Axes : 018 039 025 degrees QTc Int : 458 ms Sinus tachycardia Low voltage, precordial leads Moderate baseline artifact Confirmed by Mik Aguilar ([id number]) on 11/20/2018 9:26:17 AM Referred By: Confirmed By:Mik Aguilar
--- NOTE | 2018-11-20 11:08 | PDIAF ---
- Diagnosis Diagnosis: weakness Code Status: Do Not Resuscitate - Medication Management Discharge Medications: electronically signed and located in the Home Medication List. PICC Care - Routine: N/A - Orders Services needed: Registered Nurse, Physical Therapy, Occupational Therapy Diet Recommendation: no restrictions on diet Additional Instructions: Please follow up within 3- 4 weeks of discharge with [facility] You may reach them at [phone] for an appointment and continued management of your wounds. Please call them jimmy to schedule your appointment as they fill up quickly. If before that time you have any issues, please follow up with your PCP. Wound care: Bedsore (Pressure injury) care: You have an unstagable pressure injury (also known as a bedsore) on the very lowest part of your back (the sacrum.) To help heal this wound and avoid further injury please do the followin. Reposition yourself frequently, at least every 15 minutes when sitting. Try to stand for at least 3 min every hour so that the tissues fully reperfuse with blood. We recommend sitting on an air cushion. Please never use a doughnut. 2. When youre in bed, try to rest on your side as much as possible, and change position every two hours (for example, turn or tilt from your right side toward your left).~ Do not position yourself on your back. The wound should be offloaded at all times except while eating. If you sleep on a sleep number or medical bed, keep the head of the bed below 30 degrees unless eating.~ Try to only sit for 3 hours total per day, split into 3 one hour sections. Change dressings to Sacrum every 3 days and prn. 1. Clean with ns and gauze 2. Skin prep parish wound 3. Wound gel to wound bed 4. Cover with Mepilex Border Sacrum Polly Torab CWON. - Follow Up Care Current Providers and Referrals: Tree Davis, [Primary Care Provider] - As per Instructions
--- NOTE | 2018-11-20 11:37 | ASMTLACE ---
LACE Length of stay for Answers: 7-13 days current admission Acuity / Level of Answers: Yes Care: Did the patient have an inpatient admission? Comorbidities - select Answers: Other Notes: Hx of TBI all that apply # of Emergency department Answers: 1-2 visits in the last 6 months Score: 10 Date Signed: 11/20/2018 11:36 AM Electronically Signed By:Jalyn Feliciano RN
[2018-11-20 11:57] VITALS: BP 117/99
--- NOTE | 2018-11-20 12:46 | GDS ---
DISCHARGE DIAGNOSES: 1. Generalized weakness. 2. Tachycardia. 3. Iodine allergy. 4. Elevated alkaline phosphatase. 5. S3 sacral fracture with canal impingement. 6. Thyroid nodule. 7. Left lower extremity cellulitis. 8. Sacral pressure injury. STUDIES AND PROCEDURES DONE: 1. CT of the head. 2. Lumbar spine and thoracic spine MRI. 3. Cervical spine MRI. 4. Abdominal ultrasound. 5. PICC line placement. 6. CT angio of the chest. 7. Thyroid biopsy. CONSULTATIONS: 1. Neurosurgery. 2. Neurology. PHYSICAL EXAM: GENERAL: The patient is alert. VITAL SIGNS: Afebrile at 36.2, pulse is 112, respir atory rate is 13, blood pressure is 117/99, she is saturating 94% on room air. I have seen and evalu ated the patient on the day of discharge. HOSPITAL COURSE: 1. The patient is a 53-year-old female who presented with acute weakness. She was evaluated and merry gnosed with acute on chronic lower extremity weakness. During this hospitalization, her strength has started to return. The etiology of her overall weakness may be secondary to infection as well as a sacral fracture. She will continue rehabilitation the time of disposition. 2. Tachycardia. This has been thoroughly evaluated during this hospital course. Echocardiogram as well as CT angio has been performed. The patient does not have any signs of clotting and no etiology for her tachycardia. I have started her on low-dose beta guera to assist in this condition. 3. Iodine allergy. The patient did receive CT angio during this hospitalization with pretreatment a nd no adverse reactions. 4. Elevated alkaline phosphatase. Right upper quadrant ultrasound is normal. This abnormality was reviewed with the patient's family. No further intervention or differential diagnosis is warranted p er the family's request. 5. Thyroid nodule. There is no stridor. The patient did have a biopsy during this hospitalization, and cytology is being run. Followup will be in the outpatient setting with the patient's primary ca re physician. 6. History of traumatic brain injury. The patient is at baseline with regard to this. 7. Left lower extremity cellulitis. This has resolved. The patient did complete a course of antibi otic therapy. 8. Sacral pressure injuries. Wound Care has been assisting with this during this hospitalization, a nd these appear to be healing. 9. S3 sacral fracture with canal impingement. Neurosurgical consultation was performed. The family does not wish to have any surgical intervention during this hospital course. DISPOSITION: She will be discharged to a skilled rehabilitation for further strengthening and condit ioning. PENDING STUDIES: Include cytology of thyroid biopsy. FOLLOWUP: Will be with Dr. Tree Davis as needed. TIME SPENT: I have spent greater than 35 minutes in the care, coordination, and management of dejon king's disposition. /[id number]/MODL
--- NOTE | 2018-11-20 13:57 | ASMTDCNOTE ---
Case Management Discharge Discharge Order Complete? Answers: Yes Patient to Obtain Answers: Other Notes: [facility] Transportation Arranged Answers: Family/Friends Transport will Pick (Date 11/20/2018 02:30 PM & Time) Faxed Final Orders Answers: Yes Agency/Facility Transfer Answers: Yes Report Printed & Faxed to Receiving Agency Family Notified Answers: Yes Discharge Comments Notes: D/w [employer], final orders faxed. Kang harris notified, that parents will bring pt over,RN to call report. Date Signed: 11/20/2018 11:45 AM Electronically Signed By:Jalyn Feliciano RN
--- NOTE | 2018-11-21 10:54 | ASDISCHSUM ---
Discharge Information Plan Status:SNF Medically Cleared to Leave: Discharge Date:11/20/2018 02:10 PM D/C Disposition:[facility] Facility ADT D/C Disposition:Senior Care Facility Projected Discharge Date:11/20/2018 11:00 AM Transportation at D/C:Family Discharge Delay Reason: Follow-Up Date:11/20/2018 11:00 AM Discharge Slot: Final Diagnosis: Placement Information Referral Type:Assisted Living Residence Referral ID:[id number] Provider Name: Address 1: Phone Number: Address 2: Fax Number: City: Selection Factors: State: Referral Type:*Home Health Care Services Referral [id number] Provider Name: Address 1: Phone Number: Address 2: Fax Number: City: Selection Factors: State: Referral Type:*Alf/SNF Referral ID:[id number] Provider Name:Marisa Vasques [facility][note 3] Address 1:[address] Phone Number: Address 2: Fax Number: [facility]:[place] Selection Factors: State:[place] Patient Contact Information Contact Name:BARBARAMOHR Relationship:Mother Address:[address] Work Phone: City:[place] Alternate Phone: [facility]/Zip Code:[place] [address] Email: Financial Information Financial Class:Medicare Advantage Plans Primary Plan Desc:[employer] Primary Plan Number:[id number] Secondary Plan Desc: Secondary Plan Number: Assessment Information LACE LACE Length of stay for Answers: 7-13 days current admission Acuity / Level of Answers: Yes Care: Did the patient have an inpatient admission? Comorbidities - select Answers: Other Notes: Hx of TBI all that apply # of Emergency department Answers: 1-2 visits in the last 6 months Score: 10 Date Signed: 11/20/2018 11:36 AM Electronically Signed By:Jalyn Feliciano RN [facility] Progress Note CM Note CM Note Notes: 11/13/2018 Case Management Note Pt admitted for cellulitis and weakness. Pt has history of TBI in the late per parents. Met w/pt and her parents Charmaine [phone] and Migel. Pt sister Daniel Child can be reached at [phone]. Pt did not participate in conversation. Unable to complete CAGE questionnaire. Per pt parents, pt resides at [facility] in the Memory Care unit. Pt is currently a 2 - 3 person assist at [place]. Faxed updates to [facility]. Family considering hiring unskilled care providers to computer support analyst at [facility]. Per parents, pt is currently open with [facility]. Faxed updates. Pt mother mentioned [facility] being a resource at [facility]. Mother mentioned several times depending on outcome of workup that a referral may be necessary. Mother wants to hold off on referral or order until after results of workup are complete. Awaiting outcome of therapy evals for discharge planning. Case Management d/c poc: to be determined. Case Management to follow. Date Signed: 11/13/2018 12:17 PM Electronically Signed By:Carolann Muhammad RN [facility] CM Progress Note CM Note CM Note Notes: Met with family, PT recommends SNF, CM gave family list of SNFs. They will tour and let CM know choice. Per RN, pt will be here for a few days. Pt is current with [facility]. DC Plan: SNF Date Signed: 11/14/2018 11:44 AM Electronically Signed By:Jalyn Feliciano RN [facility] CM Progress Note CM Note CM Note Notes: Pt admitted for cellulitis and weakness and imaging revealed sacral fracture. Pt also has sacral pressure injury. Pt has history of TBI in the late per parents and lives at [facility]. Hospitalist placed order today for inpatient rehab eval which will not happen until likely . If pt does not qualify family would like her to go to a short term rehab and will notify CM when they decide which one. Info from past CM eval: Met w/pt and her parents Charmaine [phone] and Migel. Pt sister Daniel Child can be reached at [phone]. Per pt parents, pt resides at [facility] in the Memory Care unit. Pt is currently a 2 - 3 person assist at [place]. Faxed updates to [facility]. Family considering hiring unskilled care providers to computer support analyst at [place]. Per parents, pt is currently open with [facility]. Faxed updates. Pt mother mentioned [facility] being a resource at [facility]. Mother mentioned several times depending on outcome of workup that a referral may be necessary. Mother wants to hold off on referral or order until after results of workup are complete. D/C Plan: Inpatient rehab v SNF Date Signed: 11/15/2018 01:52 PM Electronically Signed By:Jeannine Magallanes [facility] CM Progress Note CM Note CM Note Notes: Spoke w/ , pt was denied by Inpt Rehab. consulted with family, would like CM to call Georgina at rehab to discuss decision. JEFF w/f. Pt lives at [facility] and is current with [facility] Plan: SNF vs Inpt Rehab Date Signed: 11/18/2018 11:19 AM Electronically Signed By:Jalyn Feliciano RN [facility] CM Progress Note CM Note CM Note Notes: Fe Julian at [facility] inpatient rehab re-reviwed chart and still reports pt does not qualify for their program. Spoke with pt and her parents Rc and Charmaine about this, they are understanding. SNF choice is [facility], referral sent in [facility] and can accept. CM to follow. D/c plan of care: [facility] when medically stable. Date Signed: 11/19/2018 01:58 PM Electronically Signed By:KOURTNEY Conte Case Management Discharge Plan Note Case Management Discharge Discharge Order Complete? Answers: Yes Patient to Obtain Answers: Other Notes: [facility] Transportation Arranged Answers: Family/Friends Transport will Pick (Date 11/20/2018 02:30 PM & Time) Faxed Final Orders Answers: Yes Agency/Facility Transfer Answers: Yes Report Printed & Faxed to Receiving Agency Family Notified Answers: Yes Discharge Comments Notes: D/w [employer], final orders faxed. Kang at notified, that parents will bring pt over,RN to call report. Date Signed: 11/20/2018 11:45 AM Electronically Signed By:Jalyn Feliciano RN Intervention Information
== END 2018-11-20 14:10 | DRG 556 ==
LOC: F3E 17:54 → OBSVTOIN 21:36 → F3E 11-17 11:05
PROVIDERS: ADMIT Internal Medicine; ATTEND Internal Medicine
PROC: 02HV33Z Insertion of Infusion Device into Superior Vena Cava, Percutaneous Approach (ICD-10-PCS; principal; 2018-11-14)
PROC: 0GBG3ZX Excision of Left Thyroid Gland Lobe, Percutaneous Approach, Diagnostic (ICD-10-PCS; 2018-11-19)
DX: M62.81 Muscle weakness (generalized) (principal); S32.19XA Other fracture of sacrum, initial encounter for closed fracture; L03.116 Cellulitis of left lower limb; L89.152 Pressure ulcer of sacral region, stage 2; L89.150 Pressure ulcer of sacral region, unstageable; D34 Benign neoplasm of thyroid gland; R00.0 Tachycardia, unspecified; V48.4XXA Person boarding or alighting a car injured in noncollision transport accident, initial encounter; R74.8 Abnormal levels of other serum enzymes; M81.0 Age-related osteoporosis without current pathological fracture; Z87.820 Personal history of traumatic brain injury; Z88.8 Allergy status to other drugs, medicaments and biological substances; Z66 Do not resuscitate
CPT/HCPCS: 84481-90; 92523-GN; 96365; 97112-GO; 97162-GP; 97166-GO; 97530-GO; 97530-GP; 97535-GO; C1751; G8978-GP-CL; G8979-GP-CK; G8980-GP-CK; G8987-GO-CM; G8988-GO-CK; G9168-GN-CL; G9169-GN-CL; G9170-GN-CL; J0690; J0696; J1200; J1650; J2930; J3370; Q9967